=== PATIENT | male | born 1990 | race Caucasian/White ===

== ENCOUNTER 2020-12-23 13:12 | Day surgery (SDC) | payer OTHER ==
[~2020-12-23] VITALS: Ht 188 cm; Wt 98.6 kg
[2020-12-23] MEDS ORDERED: PANTOPRAZOLE SO40 M2 PO (14:03)
--- NOTE | 2020-12-23 15:20 | NUR ---
12/23/20 1520 Roxi Gore PT. UP TO BR TO VOID. PT. VERBALIZES BEING WARM ENOUGH. CALL LIGHT IS WITHIN REACH.
== END 2020-12-23 17:21 | disposition home or self-care (01) ==
LOC: ORSCSDS 13:12
PROVIDERS: Orthopaedic Surgery
PROC: 0SBD4ZZ Excision of Left Knee Joint, Percutaneous Endoscopic Approach (ICD-10-PCS; principal; 2020-12-23 14:45)
DX: S83.32XD Tear of articular cartilage of left knee, current, subsequent encounter (principal); Q68.2 Congenital deformity of knee
CPT/HCPCS: A9270-GY; J0171; J0690; J1100; J1885; J2250; J2405; J2704; J3010; J7120